=== PATIENT | female | born 1985 | race Caucasian/White ===

== ENCOUNTER 2025-04-21 17:17 | Emergency (ER) | payer OTHER, SELFPAY ==
--- NOTE | ~2025-04-21 | XR_ITS ---
Examination: XR chest 2V Clinical History: sob Comparison: None Technique: PA and Lateral Findings: Cardiomediastinal silhouette normal size and configuration. Lungs clear. No acute bony abnormality. IMPRESSION: 1. No acute cardiopulmonary findings. Reviewed, dictated and finalized at location R.
[2025-04-21 17:25] VITALS: BP 144/92; PULSE 88; RESP 16; TEMP 36.1; O2SAT 98
--- NOTE | 2025-04-21 18:43 | ED.GENADULT ---
HPI - General Adult General Chief complaint: Extremity Injury, Upper Stated complaint: right shoulder pain Source: patient Mode of arrival: ambulatory Limitations: no limitations History of Present Illness HPI narrative: Patient presents for evaluation of pain in the right scapula for the last 1.5 weeks. She cannot identify any precipitating cause or injury. She states that pain is intermittent, causing her to wake from sleep at night. She typically wakes from sleep around 0300 in pain. She takes ibuprofen and applies icy hot. The icy hot seems to help her symptoms. She has also tried taking tylenol for her pain. She denies any specific precipitating cause or injury however she is fairly active at work lifting items. No radicular component to her pain. She has been experiencing SOB as of late. She denies a cough. She does vape. She states she has DDD in her upper back and is wondering whether her current symptoms are related to that. She is diabetic but states her home BS are well controlled on oral medications. She has a GM and her last a1c was 7.0. Related Data Home Medications ?Medication ?Instructions ?Recorded ?Confirmed ?Last Taken ?Type buprenorphine HCl 2 mg sublingual mg sublingual 04/21/25 Unknown History tablet buspirone 15 mg tablet mg 04/21/25 Unknown History empagliflozin 25 mg tablet mg 04/21/25 Unknown History (Jardiance) fluoxetine 40 mg capsule mg 04/21/25 Unknown History liraglutide 0.6 mg/0.1 mL (18 mg/3 mg subcut 04/21/25 Unknown History mL) subcutaneous pen injector metformin 1,000 mg tablet mg 04/21/25 Unknown History metoprolol succinate 25 mg mg PO 04/21/25 Unknown History tablet,extended release 24 hr ondansetron 4 mg disintegrating mg 04/21/25 Unknown History tablet Allergies Allergy/AdvReac Type Severity Reaction Status Date / Time Sulfa (Sulfonamide Allergy Intermediate hives Verified 04/21/25 17:30 Antibiotics) Review of Systems Review of Systems: CONSTITUTIONAL: Denies fever, chills, or sweats. EYES: Denies visual changes, redness, or discharge. ENT: Denies rhinorrhea, congestion, sore throat, or otalgia. CARDIOVASCULAR: Denies chest pain, palpitations, or edema. RESPIRATORY: Denies cough or dyspnea. GASTROINTESTINAL: Denies abdominal pain, nausea, vomiting, or diarrhea. GENITOURINARY: Denies dysuria or hematuria. SKIN: Reports itching to the right scapula MUSCULOSKELETAL: Reports right scapular pain NEUROLOGIC: Denies headache, numbness, dizziness, or weakness. PSYCHIATRIC: Denies anxiety or depression. [facility] Past Medical History Medical History Diabetes Tachycardia Surgical History Surgical History H/O shoulder surgery Family History Family History Mother Family history non-contributory Social History Social History Smoking status: Current every day smoker Tobacco type: e-cigarettes/vaping Gender identity (if verbalized by the patient): Female Spiritual care concerns: No Exam Narrative: GENERAL: Well-appearing, well-nourished, and in no acute distress. HEAD: Normocephalic, atraumatic. EYES: PERRLA and EOMI. ENT: Nares clear, no rhinorrhea or epistaxis. Mucous membranes moist. Oropharynx without tonsillar hypertrophy exudate or other lesions. Bilateral TMs pearly anand nonbulging NECK: Supple. No adenopathy or masses. No carotid bruits or JVD CHEST: Clear to auscultation. No respiratory distress. No wheezes rales or rhonchi HEART: Regular rate and rhythm. No murmur heard. Normal peripheral pulses. ABDOMEN: Soft, nontender, nondistended, normal active bowel sounds. EXTREMITIES: Normal range of motion. No edema. SKIN: There is an approximately 1 cm pliable lesion overlying the right scapula which is slightly raised. No active drainage. There are some linear scratch kidd adjacent to this lesion NEURO: No focal deficits. Alert and oriented x3. PSYCH: Normal mood and affect. Course Course Emergency Course: This is a 40-year-old female who presented for evaluation of pain in the right scapula. She appears to have a cutaneous lesion, likely lipoma versus sebaceous cyst. X-ray was performed due to shortness of breath and was negative. Cyaf-ngn-tqsejuh agents have provided her with some minor relief of her pain so will discharge with a small quantity of tramadol. She should follow-up with her primary care provider to determine whether excision of skin lesion is a possibility. She should go to the emergency department for intractable pain or worsening shortness of breath. Patient in agreement with plan of care. Level of Care: Express Care Visit Vital Signs Vital signs: Vital Signs Temperature 36.1 C L 04/21/25 17:25 Pulse Rate 88 04/21/25 17:25 Respiratory Rate 16 04/21/25 17:25 Blood Pressure 144/92 H 04/21/25 17:25 Pulse Oximetry 98 04/21/25 17:25 Oxygen Delivery Room Air 04/21/25 17:25 Temperature 36.1 C L 04/21/25 17:25 Pulse Rate 88 04/21/25 17:25 Respiratory Rate 16 04/21/25 17:25 Blood Pressure 144/92 H 04/21/25 17:25 Pulse Oximetry 98 04/21/25 17:25 Oxygen Delivery Room Air 04/21/25 17:25 Medical Decision Making Vital Signs Vital Signs: Vital Signs Temperature 36.1 C L 04/21/25 17:25 Pulse Rate 88 04/21/25 17:25 Respiratory Rate 16 04/21/25 17:25 Blood Pressure 144/92 H 04/21/25 17:25 Pulse Oximetry 98 04/21/25 17:25 Oxygen Delivery Room Air 04/21/25 17:25 Temperature 36.1 C L 04/21/25 17:25 Pulse Rate 88 04/21/25 17:25 Respiratory Rate 16 04/21/25 17:25 Blood Pressure 144/92 H 04/21/25 17:25 Pulse Oximetry 98 04/21/25 17:25 Oxygen Delivery Room Air 04/21/25 17:25 Imaging Data Radiologist's impression: Examination: XR chest 2V Clinical History: sob Comparison: None Technique: PA and Lateral Findings: Cardiomediastinal silhouette normal size and configuration. Lungs clear. No acute bony abnormality. IMPRESSION: 1. No acute cardiopulmonary findings. Discharge Plan Discharge Clinical Impression: Pain of right scapula, Skin lesion of back Patient Disposition: Home Condition: Stable Instructions: Antibiotic Form, Musculoskeletal Pain (ED), Excision of Skin Lesion (DC) Additional Instructions: PLEASE FOLLOW UP WITH PRIMARY CARE TO DISCUSS POSSIBILITY OF EXCISION OF SKIN LESION Patient Language: Bel[place]ian Prescriptions: New tramadol 50 mg tablet 50 mg PO Q8H PRN (Reason: pain) Qty: 12 0RF No Action fluoxetine 40 mg capsule metformin 1,000 mg tablet metoprolol succinate 25 mg tablet extended release 24 hr PO ondansetron 4 mg tablet,disintegrating buspirone 15 mg tablet buprenorphine HCl 2 mg tablet, sublingual SUBLINGUAL liraglutide 0.6 mg/0.1 mL (18 mg/3 mL) pen injector SUBCUT Jardiance 25 mg tablet Follow-up/Referrals: Jaswinder Murphy MD [Physician, Family Practice] Time of Disposition: 19:17
== END 2025-04-21 19:28 | disposition home or self-care (01) ==
PROVIDERS: Emergency Provider Nurse Practitioner
DX: L98.9 Disorder of the skin and subcutaneous tissue, unspecified (principal); M89.8X1 Other specified disorders of bone, shoulder; E11.9 Type 2 diabetes mellitus without complications; Z79.84 Long term (current) use of oral hypoglycemic drugs; Z79.899 Other long term (current) drug therapy; F17.290 Nicotine dependence, other tobacco product, uncomplicated
CPT/HCPCS: 71046; 99213; G0463